=== PATIENT | male | born 1950 | race Caucasian/White ===

== ENCOUNTER → 2020-07-26 | Outpatient (CLI) | payer MEDICARE, OTHER ==
[2020-07-26 13:20] LABS: ALBUMIN 3.5 GM/DL (3.2-5.2); ALT/SGPT 36 U/L (12-78); BILIRUBIN,TOTAL 0.4 MG/DL (0.2-1.0); BLOOD UREA NITROGEN 14 MG/DL (7-18); CALCIUM LEVEL 8.5 MG/DL (8.8-10.2); CARBON DIOXIDE LEVEL 30 MEQ/L (21-32); CHLORIDE LEVEL 107 MEQ/L (98-107); CHOLESTEROL LEVEL 140 MG/DL (<200); CHOLESTEROL RISK RATIO 3.684 (<5); CREATININE FOR GFR 0.92 MG/DL (0.70-1.30); GLOMERULAR FILTRATION RATE > 60.0 (>49); GLUCOSE, FASTING 109 MG/DL (70-100); HDL CHOLESTEROL 38 MG/DL (>40); LDL CHOLESTEROL 76 MG/DL (<100); NON-HDL-C 102 MG/DL; POTASSIUM SERUM 4.2 MEQ/L (3.5-5.1); SODIUM LEVEL 140 MEQ/L (136-145); TOTAL PROTEIN 6.8 GM/DL (6.4-8.2); TRIGLYCERIDES LEVEL 130 MG/DL (<150)
[2020-07-28 10:48] LABS: TOTAL 25(OH) VITAMIN D 27.1 NG/ML (30.0-100.0)
== END ==
LOC: M WUC 08:33
DX: E55.9 Vitamin D deficiency, unspecified (principal); E78.5 Hyperlipidemia, unspecified; R73.09 Other abnormal glucose; Z12.5 Encounter for screening for malignant neoplasm of prostate; Z85.46 Personal history of malignant neoplasm of prostate; Z79.899 Other long term (current) drug therapy
CPT/HCPCS: 36415; 80053; 80061; 82306; G0103

== ENCOUNTER → 2021-08-03 | Outpatient (CLI) | payer MEDICARE, OTHER ==
[2021-08-03 11:18] LABS: ALBUMIN 3.6 GM/DL (3.2-5.2); ALT/SGPT 36 U/L (12-78); BILIRUBIN,TOTAL 0.4 MG/DL (0.2-1.0); BLOOD UREA NITROGEN 18 MG/DL (7-18); CALCIUM LEVEL 8.9 MG/DL (8.8-10.2); CARBON DIOXIDE LEVEL 25 MEQ/L (21-32); CHLORIDE LEVEL 109 MEQ/L (98-107); CHOLESTEROL LEVEL 120 MG/DL (<200); CHOLESTEROL RISK RATIO 3.428 (<5); CREATININE FOR GFR 0.88 MG/DL (0.70-1.30); GLOMERULAR FILTRATION RATE > 60.0 (>49); GLUCOSE, FASTING 109 MG/DL (70-100); HDL CHOLESTEROL 35 MG/DL (>40); LDL CHOLESTEROL 65 MG/DL (<100); NON-HDL-C 85 MG/DL; POTASSIUM SERUM 4.5 MEQ/L (3.5-5.1); PROSTATIC SPECIFIC AG MONITOR < 0.01 NG/ML (< 4.00); SODIUM LEVEL 140 MEQ/L (136-145); TOTAL 25(OH) VITAMIN D 37.2 NG/ML (30.0-100.0); TOTAL PROTEIN 6.9 GM/DL (6.4-8.2); TRIGLYCERIDES LEVEL 102 MG/DL (<150)
== END ==
LOC: M WUC 08:26
PROVIDERS: ATTEND Pediatrics
DX: E78.2 Mixed hyperlipidemia (principal); E55.9 Vitamin D deficiency, unspecified; Z85.46 Personal history of malignant neoplasm of prostate; R73.09 Other abnormal glucose; Z79.899 Other long term (current) drug therapy

== ENCOUNTER → 2022-08-07 | Outpatient (CLI) | payer MEDICARE, OTHER ==
[2022-08-07 09:36] LABS: HEMATOCRIT 45.5 % (42.0-52.0); HEMOGLOBIN 15.2 g/dl (13.5-17.5); MEAN CORPUSCULAR HEMOGLOBIN 31.7 pg (27.0-33.0); MEAN CORPUSCULAR HGB CONC 33.4 g/dl (32.0-36.5); PLATELET COUNT, AUTOMATED 162 10^3/uL (150-450); RED BLOOD COUNT 4.79 10^6/uL (4.30-6.10); WHITE BLOOD COUNT 5.8 10^3/uL (4.0-10.0)
[2022-08-07 10:00] LABS: ALBUMIN 3.7 G/DL (3.2-5.2); ALKALINE PHOSPHATASE 56 U/L (46-116); ALT/SGPT 22 U/L (7.0-40); AST/SGOT 16 U/L (<34); BILIRUBIN,TOTAL 0.6 MG/DL (0.3-1.2); BLOOD UREA NITROGEN 14 MG/DL (9-23); CALCIUM LEVEL 9.2 MG/DL (8.3-10.6); CARBON DIOXIDE LEVEL 27 MMOL/L (20-31); CHLORIDE LEVEL 107 MMOL/L (98-107); CHOLESTEROL LEVEL 128 MG/DL (<200); CHOLESTEROL RISK RATIO 3.89 (<5); CREATININE FOR GFR 0.83 MG/DL (0.70-1.30); GLOMERULAR FILTRATION RATE > 60.0 (>42); GLUCOSE, FASTING 120 MG/DL (74-106); HDL CHOLESTEROL 32.9 MG/DL (>40); LDL CHOLESTEROL 75.1 MG/DL (<100); NON-HDL-C 95 MG/DL; POTASSIUM SERUM 4.2 MMOL/L (3.5-5.1); PROSTATIC SPECIFIC AG MONITOR 0.04 NG/ML (< 4.00); SODIUM LEVEL 139 MMOL/L (136-145); TOTAL PROTEIN 7.1 G/DL (5.7-8.2); TRIGLYCERIDES LEVEL 100 MG/DL (<150)
[2022-08-07 10:01] LABS: THYROID STIMULATING HORMONE 1.693 uIU/ML (0.55-4.78)
[2022-08-07 10:02] LABS: TESTOSTERONE 253 NG/DL (241-827); TOTAL 25(OH) VITAMIN D 45.4 NG/ML (20.0-100.0)
[2022-08-07 12:06] LABS: HEMOGLOBIN A1c 5.4 % (4.0-6.0)
== END ==
LOC: M LAB 08:14
PROVIDERS: ATTEND Family Medicine
DX: I10 Essential (primary) hypertension (principal); E03.9 Hypothyroidism, unspecified; R53.83 Other fatigue; Z79.899 Other long term (current) drug therapy

== ENCOUNTER → 2023-02-15 | Outpatient (CLI) | payer MEDICARE, BC ==
[2023-02-15 10:02] LABS: HEMATOCRIT 46.2 % (42.0-52.0); HEMOGLOBIN 14.7 g/dl (13.5-17.5); MEAN CORPUSCULAR HGB CONC 31.8 g/dl (32.0-36.5); MEAN CORPUSCULAR VOLUME 97.5 fl (80.0-96.0); PLATELET COUNT, AUTOMATED 173 10^3/uL (150-450); RED BLOOD COUNT 4.74 10^6/uL (4.30-6.10); WHITE BLOOD COUNT 4.7 10^3/uL (4.0-10.0)
[2023-02-15 10:37] LABS: ALKALINE PHOSPHATASE 48 U/L (46-116); ALT/SGPT 23 U/L (7.0-40); AST/SGOT 13 U/L (<34); BILIRUBIN,TOTAL 0.7 MG/DL (0.3-1.2); BLOOD UREA NITROGEN 16 MG/DL (9-23); CALCIUM LEVEL 8.8 MG/DL (8.3-10.6); CARBON DIOXIDE LEVEL 27 MMOL/L (20-31); CHLORIDE LEVEL 107 MMOL/L (98-107); CHOLESTEROL LEVEL 117 MG/DL (<200); CHOLESTEROL RISK RATIO 3.12 (<5); CREATININE FOR GFR 0.84 MG/DL (0.70-1.30); GLOMERULAR FILTRATION RATE > 60.0 (>42); GLUCOSE, FASTING 98 MG/DL (74-106); HDL CHOLESTEROL 37.4 MG/DL (>40); LDL CHOLESTEROL 65.4 MG/DL (<100); NON-HDL-C 79.6 MG/DL; POTASSIUM SERUM 4.3 MMOL/L (3.5-5.1); PROSTATIC SPECIFIC AG MONITOR 0.04 NG/ML (< 4.00); SODIUM LEVEL 140 MMOL/L (136-145); TOTAL PROTEIN 6.6 G/DL (5.7-8.2); TRIGLYCERIDES LEVEL 71 MG/DL (<150)
[2023-02-15 10:41] LABS: TOTAL 25(OH) VITAMIN D 40.2 NG/ML (20.0-100.0)
[2023-02-15 10:43] LABS: TESTOSTERONE 330 NG/DL (241-827)
[2023-02-15 10:48] LABS: HEMOGLOBIN A1c 5.3 % (4.0-6.0)
== END ==
LOC: M LAB 09:22
PROVIDERS: ATTEND Family Medicine
DX: R53.83 Other fatigue (principal); I10 Essential (primary) hypertension; E03.9 Hypothyroidism, unspecified; Z79.899 Other long term (current) drug therapy; R97.20 Elevated prostate specific antigen [PSA]

== ENCOUNTER → 2023-05-17 | Outpatient (CLI) | payer MEDICARE, BC ==
[2023-05-17 11:04] LABS: HEMATOCRIT 46.3 % (42.0-52.0); MEAN CORPUSCULAR HEMOGLOBIN 31.3 pg (27.0-33.0); MEAN CORPUSCULAR HGB CONC 32.4 g/dl (32.0-36.5); MEAN CORPUSCULAR VOLUME 96.7 fl (80.0-96.0); PLATELET COUNT, AUTOMATED 192 10^3/uL (150-450); RED BLOOD COUNT 4.79 10^6/uL (4.30-6.10)
[2023-05-17 11:28] LABS: PROSTATIC SPECIFIC AG MONITOR 0.04 NG/ML (< 4.00)
[2023-05-17 11:29] LABS: ALBUMIN 3.8 G/DL (3.2-5.2); ALKALINE PHOSPHATASE 54 U/L (46-116); ALT/SGPT 26 U/L (7.0-40); AST/SGOT 20 U/L (<34); BILIRUBIN,TOTAL 0.8 MG/DL (0.3-1.2); BLOOD UREA NITROGEN 12 MG/DL (9-23); CALCIUM LEVEL 8.9 MG/DL (8.3-10.6); CARBON DIOXIDE LEVEL 31 MMOL/L (20-31); CHLORIDE LEVEL 105 MMOL/L (98-107); CHOLESTEROL LEVEL 133 MG/DL (<200); CHOLESTEROL RISK RATIO 2.98 (<5); CREATININE FOR GFR 0.86 MG/DL (0.70-1.30); GLOMERULAR FILTRATION RATE > 60.0 (>42); GLUCOSE, FASTING 102 MG/DL (74-106); HDL CHOLESTEROL 44.6 MG/DL (>40); NON-HDL-C 88.4 MG/DL; POTASSIUM SERUM 4.6 MMOL/L (3.5-5.1); SODIUM LEVEL 142 MMOL/L (136-145); TOTAL PROTEIN 6.9 G/DL (5.7-8.2); TRIGLYCERIDES LEVEL 62 MG/DL (<150)
[2023-05-17 11:32] LABS: THYROID STIMULATING HORMONE 3.522 uIU/ML (0.55-4.78); TOTAL 25(OH) VITAMIN D 40.8 NG/ML (20.0-100.0)
[2023-05-17 11:33] LABS: TESTOSTERONE 390 NG/DL (241-827)
== END ==
LOC: M LAB 10:15
PROVIDERS: ATTEND Family Medicine
DX: I10 Essential (primary) hypertension (principal); R53.83 Other fatigue; E03.9 Hypothyroidism, unspecified

== ENCOUNTER → 2023-09-30 | Outpatient (CLI) | payer MEDICARE, BC ==
[2023-09-30 11:25] LABS: HEMATOCRIT 46.3 % (42.0-52.0); HEMOGLOBIN 15.4 g/dl (13.5-17.5); MEAN CORPUSCULAR HGB CONC 33.3 g/dl (32.0-36.5); MEAN CORPUSCULAR VOLUME 93.3 fl (80.0-96.0); PLATELET COUNT, AUTOMATED 163 10^3/uL (150-450); RED BLOOD COUNT 4.96 10^6/uL (4.30-6.10)
[2023-09-30 11:51] LABS: HEMOGLOBIN A1c 5.4 % (4.0-6.0)
[2023-09-30 11:56] LABS: PROSTATIC SPECIFIC AG MONITOR 0.04 NG/ML (< 4.00)
[2023-09-30 12:00] LABS: THYROID STIMULATING HORMONE 1.639 uIU/ML (0.55-4.78); TOTAL 25(OH) VITAMIN D 46.5 NG/ML (20.0-100.0)
[2023-09-30 12:01] LABS: ALBUMIN 3.7 G/DL (3.2-5.2); ALKALINE PHOSPHATASE 43 U/L (46-116); ALT/SGPT 19 U/L (7.0-40); AST/SGOT 16 U/L (<34); BILIRUBIN,TOTAL 0.7 MG/DL (0.3-1.2); BLOOD UREA NITROGEN 15 MG/DL (9-23); CALCIUM LEVEL 9.2 MG/DL (8.3-10.6); CARBON DIOXIDE LEVEL 27 MMOL/L (20-31); CHLORIDE LEVEL 109 MMOL/L (98-107); CHOLESTEROL LEVEL 157 MG/DL (<200); CHOLESTEROL RISK RATIO 3.72 (<5); CREATININE FOR GFR 0.85 MG/DL (0.70-1.30); GLOMERULAR FILTRATION RATE > 60.0 (>42); GLUCOSE, FASTING 92 MG/DL (74-106); HDL CHOLESTEROL 42.2 MG/DL (>40); LDL CHOLESTEROL 98.2 MG/DL (<100); NON-HDL-C 114.8 MG/DL; POTASSIUM SERUM 4.6 MMOL/L (3.5-5.1); SODIUM LEVEL 140 MMOL/L (136-145); TESTOSTERONE 427 NG/DL (241-827); TOTAL PROTEIN 6.8 G/DL (5.7-8.2); TRIGLYCERIDES LEVEL 83 MG/DL (<150)
== END ==
LOC: M LAB 10:19
PROVIDERS: ATTEND Family Medicine
DX: I10 Essential (primary) hypertension (principal); E03.9 Hypothyroidism, unspecified; R53.83 Other fatigue; Z79.899 Other long term (current) drug therapy

== ENCOUNTER → 2024-01-02 | Outpatient (CLI) | payer MEDICARE, BC | LOC: M RAD 11:22 | PROVIDERS: ATTEND Family Medicine | DX: J44.9 Chronic obstructive pulmonary disease, unspecified (principal); I10 Essential (primary) hypertension ==

== ENCOUNTER → 2024-07-19 | Outpatient (CLI) | payer MEDICARE, BC ==
[2024-07-19 09:57] LABS: HEMOGLOBIN 16.1 g/dl (13.5-17.5); MEAN CORPUSCULAR HEMOGLOBIN 31.6 pg (27.0-33.0); MEAN CORPUSCULAR HGB CONC 33.5 g/dl (32.0-36.5); MEAN CORPUSCULAR VOLUME 94.3 fl (80.0-96.0); PLATELET COUNT, AUTOMATED 165 10^3/uL (150-450); RED BLOOD COUNT 5.09 10^6/uL (4.30-6.10); WHITE BLOOD COUNT 4.6 10^3/uL (4.0-10.0)
[2024-07-19 10:11] LABS: HEMOGLOBIN A1c 5.4 % (4.0-6.0)
[2024-07-19 10:12] LABS: PROSTATIC SPECIFIC AG MONITOR 0.04 NG/ML (< 4.00)
[2024-07-19 10:16] LABS: ALBUMIN 3.9 G/DL (3.2-5.2); ALKALINE PHOSPHATASE 48 U/L (40-129); ALT/SGPT 23 U/L (7.0-40); AST/SGOT 16 U/L (<34); BILIRUBIN,TOTAL 0.8 MG/DL (0.3-1.2); BLOOD UREA NITROGEN 13 MG/DL (9-23); CALCIUM LEVEL 9.6 MG/DL (8.3-10.6); CARBON DIOXIDE LEVEL 30 MMOL/L (20-31); CHLORIDE LEVEL 108 MMOL/L (98-107); CHOLESTEROL LEVEL 142 MG/DL (<200); CHOLESTEROL RISK RATIO 3.49 (<5); CREATININE FOR GFR 0.92 MG/DL (0.70-1.30); GLOMERULAR FILTRATION RATE > 60.0 (>42); GLUCOSE, FASTING 102 MG/DL (74-106); HDL CHOLESTEROL 40.6 MG/DL (>40); LDL CHOLESTEROL 86.6 MG/DL (<100); NON-HDL-C 101.4 MG/DL; POTASSIUM SERUM 4.7 MMOL/L (3.5-5.1); SODIUM LEVEL 142 MMOL/L (136-145); TOTAL PROTEIN 7.1 G/DL (5.7-8.2); TRIGLYCERIDES LEVEL 74 MG/DL (<150)
[2024-07-19 10:18] LABS: THYROID STIMULATING HORMONE 2.148 uIU/ML (0.55-4.78)
[2024-07-19 10:19] LABS: TESTOSTERONE 542 NG/DL (241-827)
== END ==
LOC: M LAB 08:55
PROVIDERS: ATTEND Family Medicine
DX: R53.83 Other fatigue (principal); I10 Essential (primary) hypertension; E03.9 Hypothyroidism, unspecified; Z79.899 Other long term (current) drug therapy